=== PATIENT | male | born 1990 | race African-American/Black ===

== ENCOUNTER 2018-04-08 23:49 | Emergency (ER) | payer SELFPAY ==
[~2018-04-08] VITALS: Ht 170.2 cm; Wt 78.0 kg
[2018-04-08 23:54] VITALS: BP 112/65
== END 2018-04-09 07:59 | disposition left against medical advice (07) ==
LOC: ER 23:49
DX: F43.9 Reaction to severe stress, unspecified (principal); Z53.21 Procedure and treatment not carried out due to patient leaving prior to being seen by health care provider